=== PATIENT | female | born 1980 | race Caucasian/White ===

== ENCOUNTER → 2017-02-08 | Outpatient (CLI) | payer OTHER ==
[~2017-02-08] MED LIST: /MOM400 PO; ACET50TA PO; ANUS2.5C2 EXT; CATA0.1T OR; CLEO300C OR; DOCU10CA PO; DOCU10ELUD PO; FLEXERIL 5 MG; IBUP600T26 PO; IBUP60TA PO; IBUP80TA PO; MOM30SS PO; No Historical Meds; TRAM50TA2 OR; TRAZ100T OR; ZOLO50TA OR; [UNRECOGNIZED DRUG - CODE] EX
== END ==
LOC: M OUTALCOH 15:55
PROVIDERS: ATTEND Psychiatry & Neurology Psychiatry
DX: Z13.9 Encounter for screening, unspecified (principal); F11.20 Opioid dependence, uncomplicated

== ENCOUNTER 2017-09-14 09:01 | Inpatient (IN) | payer OTHER ==
[~2017-09-14] VITALS: Ht 170.2 cm; Wt 73.0 kg
[2017-09-14] MEDS ORDERED: CONC18TA14 (09:14)
[2017-09-14 10:02] LABS: MEAN CORPUSCULAR HEMOGLOBIN 32.3 pg (27.0-33.0); MEAN CORPUSCULAR HGB CONC 34.7 g/dl (32.0-36.5); MEAN CORPUSCULAR VOLUME 92.9 fl (80.0-96.0); RED CELL DISTRIBUTION WIDTH 12.6 % (11.5-14.5); WHITE BLOOD COUNT 9.2 10^3/uL (4.0-10.0)
[2017-09-14 10:25] LABS: CONTROL LINE HCG INT CTR LINE PRESENT
[2017-09-14 10:47] LABS: ALBUMIN/GLOBULIN RATIO 0.91 (1.00-1.93); ALKALINE PHOSPHATASE 62 U/L (45-117); ALT/SGPT 55 U/L (12-78); ANION GAP 4 MEQ/L (8-16); AST/SGOT 20 U/L (15-37); BILIRUBIN,DIRECT 0.3 MG/DL (0.0-0.2); BILIRUBIN,TOTAL 1.2 MG/DL (0.2-1.0); BLOOD UREA NITROGEN 11 MG/DL (7-18); CARBON DIOXIDE LEVEL 31 MEQ/L (21-32); CHLORIDE LEVEL 102 MEQ/L (98-107); CREATININE FOR GFR 0.77 MG/DL (0.55-1.02); GLOMERULAR FILTRATION RATE > 60.0 (>60); GLUCOSE, FASTING 73 MG/DL (70-105); POTASSIUM SERUM 4.1 MEQ/L (3.5-5.1); SODIUM LEVEL 137 MEQ/L (136-145); TOTAL PROTEIN 8.4 GM/DL (6.4-8.2)
[2017-09-14 11:19] LABS: METHADONE URINE NEGATIVE (NEGATIVE)
[2017-09-14] MEDS ORDERED: METH18TA2 PO (12:01)
[2017-09-14] MEDS ORDERED: METH36TA PO (12:01)
[2017-09-14] MEDS ORDERED: SUBO8MIS SL ×2 (12:01→12:50)
[2017-09-14 15:25] VITALS: BP 131/79
[2017-09-14] MEDS ORDERED: BUPRENORPHINE/NALOXONE 8-2MG SUBLINGUAL TABLET(SUBOXONE) SL STA (16:40)
[2017-09-14] MEDS ORDERED: traZODone 50 MG TAB PO PRN (18:00)
[2017-09-14] MEDS ORDERED: MAALOX 30 ML SUSP *UDC PO PRN (18:00)
[2017-09-14] MEDS ORDERED: MOM 30ML SUSPENSION UDC PO PRN (18:00)
[2017-09-15 06:26] VITALS: BP 141/67
[2017-09-15] MEDS: NICOTINE 21MG/24HR 1 EA TRANSDERMAL TD SCH (08:41)
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
[2017-09-15] MEDS: BUPRENORPHINE/NALOXONE 8-2MG SUBLINGUAL TABLET(SUBOXONE) SL SCH ×2 (09:38→21:04)
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
[2017-09-15] MEDS ORDERED: hydrOXYzine 25 MG TAB PO PRN (16:00)
[2017-09-15] MEDS: ACAMPROSATE CALCIUM 333 MG TABLET (CAMPRAL) PO SCH ×2 (16:09→21:04)
--- NOTE | 2017-09-15 16:39 | ECGEPIP ---
Stationary ECG Study [facility] Test Date: 2017-09-15 Pat Name: TYREE ACUNAepartment: Room: [place] [address] Gender: F Full Charge Bookkeeper: MYNOR : 1980 Requested By: Noa Reyez Order Number: [id number] Reading MD: Donovan Davidson Measurements Intervals [place] Rate: 78 P: 68 NC: 206 QRS: 51 QRSD: 117 T: 59 QT: 394 QTc: 451 Interpretive Statements SINUS RHYTHM WITH SINUS ARRHYTHMIA POSSIBLE OLD INFERIOR MYOCARDIAL INFARCT Increased heart rate compared with 2015. Electronically Signed On 09-15-2017 16:39:05 EDT by Donovan Davidson
[2017-09-15 18:22] VITALS: BP 128/63
[2017-09-15] MEDS: cloNIDine 0.1 MG TAB PO SCH (21:04)
[2017-09-16 06:00] VITALS: BP 117/68
[2017-09-16] MEDS: ACETAMINOPHEN TAB 650MG DOSE (2X325MG) PO PRN (06:25)
[2017-09-16] MEDS: cloNIDine 0.1 MG TAB PO SCH ×2 (08:34→22:57)
[2017-09-16] MEDS: NICOTINE 21MG/24HR 1 EA TRANSDERMAL TD SCH (08:34)
[2017-09-16] MEDS: ACAMPROSATE CALCIUM 333 MG TABLET (CAMPRAL) PO SCH ×3 (08:34→21:19)
[2017-09-16] MEDS: BUPRENORPHINE/NALOXONE 8-2MG SUBLINGUAL TABLET(SUBOXONE) SL SCH ×2 (08:34→21:19)
--- NOTE | 2017-09-16 14:20 | MHIPNPDOC ---
[facility] Progress Note Progress Note DATE OF SERVICE: 09/16/17 HISTORY: day 3 of admission for depression and anxiety related to CPS and children & substance abuse VITAL SIGNS: See below. NEW TEST RESULTS: CURRENT MEDICATIONS: See below. MENTAL STATUS EXAMINATION: General appearance: Patient is a 36-year old female, who is average height, dark hair in front and bright red hair behind, various tattoos on both arms and neck, good eye contact. Speech: spontaneous Thought processes: goal directed Thought content: appropriate Abstract reasoning and computation: good Description of associations: good Description of abnormal or psychotic thoughts: pt feels her MH needs must be addressed as her focus heretofore has been on substance abuse. She can CFS and believes she would never harm herself because of the poor example it would be to her children. She does not demonstrate any psychotic symptoms. Judgment: fair Insight: fair Orientation: well oriented x 4. Recent and remote memory: mostly good. Attention span and concentration: easily distracted, currently not prescribed Concerta. Fund of knowledge: Full Mood: "anxious" Affect: congruent. DIAGNOSES: 1. Depressive disorder, unspecified 2. Generalized Anxiety disorder 3. r/o bipolar disorder 4. ADD 5. Substance use disorder ASSESSMENT: pt is oor and visible in milieu, interacting with peers. knows one peer from treatment in the community. Appears motivated to treatment and has convinced staff that she is sincere. She worries about her 5 children with her cousin and this adds to her guilt. She knows it is a difficult on her cousin. She is talking with local agencies hoping to secure a better living situation. Pt is positive and optimistic. She has not used the hydroxyzine today. MANAGEMENT PLAN: close obs, prn hydroxyzine, clonidine bid for anxiety, monitor sleep, pt in need of housing, has HUD, seeking Case mgt services and working to get us information on her recent referral. Mirtazapine ordered for sleep. TIME SPENT: 15 minutes. Vital Signs Vital Signs Date Time Temp Pulse Resp B/P (MAP) Pulse Ox O2 Delivery O2 Flow Rate FiO2 09/16/17 08:34 117/68 09/16/17 06:00 97.1 63 16 09/15/17 06:26 Room Air 09/14/17 15:25 98 Current Medications Current Medications Acamprosate (Campral) 666 mg TID PO Last administered on 09/16/17 08:34; Start 09/15/17 at 16:00; Stop 10/15/17 at 15:59 Acetaminophen (Tylenol Tab) 650 mg Q6HP PRN PO HEADACHE or DISCOMFORT Last administered on 09/16/17 06:25; Start 09/14/17 at 18:00; Stop 10/14/17 at 17 :59 Al Hydrox/Mg Hydrox/Simethicone (Mylanta) 30 ml Q4HP PRN PO HEARTBURN/ INDIGESTION; Start 09/14/17 at 18:00; Stop 10/14/17 at 17:59 Buprenorphine/ Naloxone (Suboxone 8/2mg) 1 tab BID SL Last administered on 08:34; Start 09/14/17 at 21:00; Stop 09/21/17 at 20:59; Status Future hold Buprenorphine/ Naloxone (Suboxone 8/2mg) 1 tab DAILY STAT SL Last administered on 09/14/17 16:55; Start 09/14/17 at 16:40; Stop 09/14/17 at 16 :43; Status DC Clonidine HCl (Catapres) 0.1 mg BID PO Last administered on 09/16/17 08:34; Start 09/15/17 at 21:00; Stop 10/15/17 at 20:59 Home Med (Med Rec Complete!) ASDIRECTED XX ; Start 09/14/17 at 13:00; Stop at 13:00; Status DC Hydroxyzine HCl (Atarax) 25 mg Q6HP PRN PO ANXIETY; Start 09/15/17 at 16:00; Stop 10/15/17 at 15:59 Magnesium Hydroxide (Milk Of Magnesia) 30 ml DAILYPRN PRN PO CONSTIPATION; Start 09/14/17 at 18:00; Stop 10/14/17 at 17:59 Nicotine (Nicoderm Cq 21mg) 1 patch DAILY TD Last administered on 09/16/17 08 :34; Start 09/15/17 at 09:00; Stop 10/15/17 at 08:59 Trazodone HCl (Desyrel) 50 mg QHSP PRN PO INSOMNIA; Start 09/14/17 at 18:00; Stop 10/14/17 at 17:59 Allergies Coded Allergies: No Known Allergies (Verified Allergy, Unknown, 11/30/12) pt denies any allergies Tierney Nunez Sep 16, 2017 14:20
[2017-09-16 18:00] VITALS: BP 137/75
[2017-09-16] MEDS: MIRTAZAPINE 15 MG TAB PO SCH (22:55)
[2017-09-17 07:00] VITALS: BP 105/52
[2017-09-17] MEDS: cloNIDine 0.1 MG TAB PO SCH ×2 (09:00→23:17)
[2017-09-17] MEDS: NICOTINE 21MG/24HR 1 EA TRANSDERMAL TD SCH (09:31)
[2017-09-17] MEDS: ACAMPROSATE CALCIUM 333 MG TABLET (CAMPRAL) PO SCH ×3 (09:31→21:36)
[2017-09-17] MEDS: BUPRENORPHINE/NALOXONE 8-2MG SUBLINGUAL TABLET(SUBOXONE) SL SCH ×2 (09:31→21:23)
--- NOTE | 2017-09-17 09:40 | MHIPNPDOC ---
[facility] Progress Note Progress Note DATE OF SERVICE: 09/17/17 HISTORY: day 4 of admission for depression / relapse with alcohol, cocaine VITAL SIGNS: See below. NEW TEST RESULTS: na CURRENT MEDICATIONS: See below. MENTAL STATUS EXAMINATION: General appearance: Patient is a 36-year old female, who is average height, dark hair in front and bright red hair behind, various tattoos on both arms and neck, good eye contact. Speech: spontaneous Thought processes: goal directed Thought content: appropriate Abstract reasoning and computation: good Description of associations: good Description of abnormal or psychotic thoughts: pt feels her MH needs must be addressed as her focus heretofore has been on substance abuse. She can CFS and believes she would never harm herself because of the poor example it would be to her children. She does not demonstrate any psychotic symptoms. Judgment: fair Insight: fair Orientation: well oriented x 4. Recent and remote memory: mostly good. Attention span and concentration: easily distracted, currently not prescribed Concerta. Fund of knowledge: Full Mood: "anxious" Affect: congruent. DIAGNOSES: 1. Depressive disorder, unspecified 2. Generalized Anxiety disorder 3. r/o bipolar disorder 4. ADD 5. Substance use disorder ASSESSMENT:met with pt for 1:1 she is reporting daytime fatigue likely due to clonidine. will decrease to hs dosing only. pt still having nicotine cravings and asked to have gum instead of patch. Pt reports good sleep with Mirtazapine last night. We discussed her experience over the previous 5 years will her mood. She was sober and free of drugs during that time. She states that depression would overtake her suddenly even in the mist of doing something fun, like preparing to go to the beach, and she would not be able to complete packing up and would not go. Her mood would persist for 2-3 days and then gradually she would work up into and elevated mood with increased energy. She reports racing thoughts and going for days with little to no sleep and no need for sleep. She reports impulsive decision making and some reckless behavior. Her family history does not include bipolar that she is aware of. Pt is attending programming but also using her time to investigate safe housing for herself and children post discharge. Pt states she misses her children. Informed her 18 yo may visit. MANAGEMENT PLAN: will dc patch and order Nicorette gum, will begin Lamictal for mood stabilization- risks including SJS and angioedema discussed. Benefits explained. pt asked questions which were answered. Clonidine will be changed to hs dosing only., continue close obs and assist with housing as able. TIME SPENT: 25 minutes. Vital Signs Vital Signs Date Time Temp Pulse Resp B/P (MAP) Pulse Ox O2 Delivery O2 Flow Rate FiO2 09/17/17 07:00 98.1 57 18 105/52 (69) 09/15/17 06:26 Room Air 09/14/17 15:25 98 Current Medications Current Medications Acamprosate (Campral) 666 mg TID PO Last administered on 09/17/17 09:31; Start 09/15/17 at 16:00; Stop 10/15/17 at 15:59 Acetaminophen (Tylenol Tab) 650 mg Q6HP PRN PO HEADACHE or DISCOMFORT Last administered on 09/16/17 06:25; Start 09/14/17 at 18:00; Stop 10/14/17 at 17 :59 Al Hydrox/Mg Hydrox/Simethicone (Mylanta) 30 ml Q4HP PRN PO HEARTBURN/ INDIGESTION; Start 09/14/17 at 18:00; Stop 10/14/17 at 17:59 Buprenorphine/ Naloxone (Suboxone 8/2mg) 1 tab BID SL Last administered on 09:31; Start 09/14/17 at 21:00; Stop 09/21/17 at 20:59; Status Future hold Buprenorphine/ Naloxone (Suboxone 8/2mg) 1 tab DAILY STAT SL Last administered on 09/14/17 16:55; Start 09/14/17 at 16:40; Stop 09/14/17 at 16 :43; Status DC Clonidine HCl (Catapres) 0.1 mg BID PO Last administered on 09/16/17 22:57; Start 09/15/17 at 21:00; Stop 10/15/17 at 20:59 Home Med (Med Rec Complete!) ASDIRECTED XX ; Start 09/14/17 at 13:00; Stop at 13:00; Status DC Hydroxyzine HCl (Atarax) 25 mg Q6HP PRN PO ANXIETY Last administered on 15:23; Start 09/15/17 at 16:00; Stop 10/15/17 at 15:59 Magnesium Hydroxide (Milk Of Magnesia) 30 ml DAILYPRN PRN PO CONSTIPATION; Start 09/14/17 at 18:00; Stop 10/14/17 at 17:59 Mirtazapine (Remeron) 15 mg QHS PO Last administered on 09/16/17 22:55; Start 09/16/17 at 21:00; Stop 10/16/17 at 20:59 Nicotine (Nicoderm Cq 21mg) 1 patch DAILY TD Last administered on 09/17/17 09 :31; Start 09/15/17 at 09:00; Stop 10/15/17 at 08:59 Trazodone HCl (Desyrel) 50 mg QHSP PRN PO INSOMNIA; Start 09/14/17 at 18:00; Stop 10/14/17 at 17:59 Allergies Coded Allergies: No Known Allergies (Verified Allergy, Unknown, 10/28/12) pt denies any allergies Tierney Nunez Sep 17, 2017 09:40
[2017-09-17] MEDS: ACETAMINOPHEN TAB 650MG DOSE (2X325MG) PO PRN (12:17)
[2017-09-17] MEDS ORDERED: BENZOCAINE 10% 9GM TUBE (ANBESOL) TOP PRN (13:15)
[2017-09-17] MEDS: NICOTINE POLACRILEX 2 MG GUM PO PRN ×2 (14:29→21:24)
[2017-09-17 18:00] VITALS: BP 123/71
[2017-09-17] MEDS: lamoTRIgine 25 MG TAB PO SCH (21:36)
[2017-09-17] MEDS: MIRTAZAPINE 15 MG TAB PO SCH (23:18)
[2017-09-18 07:04] VITALS: BP 111/56
[2017-09-18] MEDS: BUPRENORPHINE/NALOXONE 8-2MG SUBLINGUAL TABLET(SUBOXONE) SL SCH ×2 (08:42→21:51)
[2017-09-18] MEDS: ACAMPROSATE CALCIUM 333 MG TABLET (CAMPRAL) PO SCH ×3 (08:42→20:13)
[2017-09-18] MEDS: ACETAMINOPHEN TAB 650MG DOSE (2X325MG) PO PRN (08:43)
[2017-09-18] MEDS: NICOTINE POLACRILEX 2 MG GUM PO PRN ×3 (09:49→20:13)
--- NOTE | 2017-09-18 15:59 | MHIPN ---
DATE: 09/18/2017 CHIEF COMPLAINT: Feels tired. SUBJECTIVE: Seen for followup in the presence of staff. Says feels a bit tired. Feels it is only because of the mirtazapine that was started while she was here. She says feels drowsy when she wakes up. Does say feels less anxious and less depressed overall. Appetite is fair. MENTAL STATUS EXAMINATION: Neat, cooperative. No agitation. No psychomotor retardation but appears somewhat tired. She is coherent. Affect restricted in range but showed reactivity. Denies any suicidal thoughts or intents. No homicidal ideas or intents. Currently no evidence of any psychosis. Cognition grossly intact. Judgment and insight fair. ASSESSMENT: 1. Unspecified depressive disorder. 2. Generalized anxiety disorder. 3. Rule out bipolar disorder. There is a consideration of substance use disorder as well. PLAN: Continue current care but will look at decreasing the dose of the mirtazapine; for example, halving it, and if the sense of tiredness continues, may need to look at discontinuing the Remeron. She is to be encouraged to participate in activities in the unit. VITAL SIGNS: Blood pressure 111/56, pulse 65, temperature 97.8.
[2017-09-18 18:13] VITALS: BP 113/68
[2017-09-18] MEDS: lamoTRIgine 25 MG TAB PO SCH (20:13)
[2017-09-18] MEDS: cloNIDine 0.1 MG TAB PO SCH (21:51)
[2017-09-18] MEDS: MIRTAZAPINE 7.5MG PER 1/2 TABLET PO SCH (21:51)
[2017-09-19 06:34] VITALS: BP 119/69
[2017-09-19] MEDS: BUPRENORPHINE/NALOXONE 8-2MG SUBLINGUAL TABLET(SUBOXONE) SL SCH ×2 (08:56→21:22)
[2017-09-19] MEDS: ACAMPROSATE CALCIUM 333 MG TABLET (CAMPRAL) PO SCH ×3 (08:56→21:21)
[2017-09-19] MEDS: NICOTINE POLACRILEX 2 MG GUM PO PRN ×2 (10:16→21:24)
[2017-09-19 18:00] VITALS: BP 133/68
[2017-09-19] MEDS: ACETAMINOPHEN TAB 650MG DOSE (2X325MG) PO PRN (18:57)
[2017-09-19] MEDS: MIRTAZAPINE 7.5MG PER 1/2 TABLET PO SCH (21:21)
[2017-09-19] MEDS: cloNIDine 0.1 MG TAB PO SCH (21:22)
[2017-09-19] MEDS: lamoTRIgine 25 MG TAB PO SCH (21:22)
[2017-09-20 06:36] VITALS: BP 85/53
[2017-09-20] MEDS: ACETAMINOPHEN TAB 650MG DOSE (2X325MG) PO PRN (08:31)
[2017-09-20] MEDS: ACAMPROSATE CALCIUM 333 MG TABLET (CAMPRAL) PO SCH ×3 (08:31→21:36)
[2017-09-20] MEDS: BUPRENORPHINE/NALOXONE 8-2MG SUBLINGUAL TABLET(SUBOXONE) SL SCH ×2 (08:31→21:33)
--- NOTE | 2017-09-20 08:53 | MHIPNPDOC ---
[facility] Progress Note Progress Note DATE OF SERVICE: 09/20/17 HISTORY: day 7 of admission for drug relapse and depression VITAL SIGNS: See below. NEW TEST RESULTS: na CURRENT MEDICATIONS: See below. MENTAL STATUS EXAMINATION: Patient is a 36-year old female, who appears older than her age, has bright red hair with black mixed in, wearing in pony tail with braid today, dressed in street clothes, cooperative. Speech: Is spontaneous, clear Language skills are intact and good. Thought processes including: goal directed. Thought content: appropriate. Abstract reasoning, and computation:good. Description of associations: good. Description of abnormal or psychotic thoughts: no psychotic symptoms illicited. pt is clear thinking and future oriented, no delusions or FOI.. Judgment: fair Insight: good. Orientation: oriented x 4. Recent and remote memory: intact Attention span and concentration: fair Fund of knowledge: Full. Mood: labile. Affect: tearful, anxious. DIAGNOSES: 1. Depressive disorder, unspecified 2. Generalized Anxiety disorder 3. r/o bipolar disorder 4. ADD 5. Substance use disorder ASSESSMENT:met with pt for 1:1. She was tearful and appears stressed. She is anticipating the meeting at 10:30 with CPS. She wants so much to be re-united with her Children. She is really struggling that her cousin is caring for all 5 of them. She is committed to substance abuse recovery and we are checking with [facility] on IOP for her. Once outpatient treatment plan and housing are determined we can move her into discharge mode. She has been working on discharge planning since she was initially admitted. Pt reports her daytime fatigue is resolved with lowering of the mirtazapine from 15 mg to 7.[address] Lopez this weekend. Pt received the okay late this afternoon from [facility] that she may live at her cousins with her children. Next we have to line up her IOP treatment and she will be ready for discharge. Continues to deny thoughts of harm to self or others. Denies desire to use illicit substances, admits to being co-dependent and needing to work on personal boundaries. MANAGEMENT PLAN: had planned to talk to pt about staff reports that she allows herself to become over involved with peers but due to her stress abut CPS this morning decided against it. Will wait for a more appropriate time, continue close obs and meds. TIME SPENT: 25 minutes. Vital Signs Vital Signs Date Time Temp Pulse Resp B/P (MAP) Pulse Ox O2 Delivery O2 Flow Rate FiO2 09/20/17 06:36 98.7 56 16 85/53 (64) 09/19/17 06:34 Room Air 09/14/17 15:25 98 Current Medications Current Medications Acamprosate (Campral) 666 mg TID PO Last administered on 09/20/17 08:31; Start 09/15/17 at 16:00; Stop 10/15/17 at 15:59 Acetaminophen (Tylenol Tab) 650 mg Q6HP PRN PO HEADACHE or DISCOMFORT Last administered on 09/20/17 08:31; Start 09/14/17 at 18:00; Stop 10/14/17 at 17 :59 Al Hydrox/Mg Hydrox/Simethicone (Mylanta) 30 ml Q4HP PRN PO HEARTBURN/ INDIGESTION; Start 09/14/17 at 18:00; Stop 10/14/17 at 17:59 Benzocaine (Anbesol Gel) Q2HP PRN TOP PAIN Last administered on 09/17/17 18: 00; Start 09/17/17 at 13:15; Stop 10/17/17 at 13:14 Buprenorphine/ Naloxone (Suboxone 8/2mg) 1 tab BID SL Last administered on 08:31; Start 09/14/17 at 21:00; Stop 09/21/17 at 20:59; Status Future hold Buprenorphine/ Naloxone (Suboxone 8/2mg) 1 tab DAILY STAT SL Last administered on 09/14/17 16:55; Start 09/14/17 at 16:40; Stop 09/14/17 at 16 :43; Status DC Clonidine HCl (Catapres) 0.1 mg BID PO Last administered on 09/16/17 22:57; Start 09/15/17 at 21:00; Stop 09/17/17 at 10:31; Status DC Clonidine HCl (Catapres) 0.1 mg QHS PO Last administered on 09/19/17 21:22; Start 09/17/17 at 21:00; Stop 10/15/17 at 20:59 Home Med (Med Rec Complete!) ASDIRECTED XX ; Start 09/14/17 at 13:00; Stop at 13:00; Status DC Hydroxyzine HCl (Atarax) 25 mg Q6HP PRN PO ANXIETY Last administered on 15:23; Start 09/15/17 at 16:00; Stop 10/15/17 at 15:59 Lamotrigine (LaMICtal) 25 mg QHS PO Last administered on 09/19/17 21:22; Start 09/17/17 at 21:00; Stop 10/17/17 at 20:59 Magnesium Hydroxide (Milk Of Magnesia) 30 ml DAILYPRN PRN PO CONSTIPATION; Start 09/14/17 at 18:00; Stop 10/14/17 at 17:59 Mirtazapine (Remeron) 7.5 mg QHS PO Last administered on 09/19/17 21:21; Start 09/18/17 at 21:00; Stop 10/18/17 at 20:59 Mirtazapine (Remeron) 15 mg QHS PO Last administered on 09/17/17 23:18; Start 09/16/17 at 21:00; Stop 09/18/17 at 14:00; Status DC Nicotine (Nicoderm Cq 21mg) 1 patch DAILY TD Last administered on 09/17/17 09 :31; Start 09/15/17 at 09:00; Stop 09/17/17 at 10:31; Status DC Nicotine (Nicorette) 2 mg Q4HP PRN PO NICOTINE WITHDRAWAL Last administered on 09/19/17 21:24; Start 09/17/17 at 10:30; Stop 10/17/17 at 10:29 Trazodone HCl (Desyrel) 50 mg QHSP PRN PO INSOMNIA; Start 09/14/17 at 18:00; Stop 10/14/17 at 17:59; Status Cancel Allergies Coded Allergies: No Known Allergies (Verified Allergy, Unknown, 10/28/12) pt denies any allergies Tierney Nuenz Sep 20, 2017 08:53
[2017-09-20] MEDS: NICOTINE POLACRILEX 2 MG GUM PO PRN ×2 (15:06→21:38)
[2017-09-20 18:00] VITALS: BP 132/52
[2017-09-20 21:36] VITALS: BP 135/78
[2017-09-20] MEDS: lamoTRIgine 25 MG TAB PO SCH (21:36)
[2017-09-20] MEDS: cloNIDine 0.1 MG TAB PO SCH (21:36)
[2017-09-20] MEDS: MIRTAZAPINE 7.5MG PER 1/2 TABLET PO SCH (21:36)
[2017-09-21 06:50] VITALS: BP 119/62
[2017-09-21] MEDS: ACAMPROSATE CALCIUM 333 MG TABLET (CAMPRAL) PO SCH (08:26)
[2017-09-21] MEDS: BUPRENORPHINE/NALOXONE 8-2MG SUBLINGUAL TABLET(SUBOXONE) SL SCH (08:26)
[2017-09-21] MEDS: ACETAMINOPHEN TAB 650MG DOSE (2X325MG) PO PRN (08:28)
[2017-09-21] MEDS ORDERED: LAMI25TA PO (08:55)
[2017-09-21] MEDS ORDERED: CLONI1TA PO (08:55)
[2017-09-21] MEDS ORDERED: HYDR-3363 PO (08:55)
[2017-09-21] MEDS ORDERED: ACAM0.05 PO (08:55)
[2017-09-21] MEDS ORDERED: BUPR1SUB5 SL (08:55)
[2017-09-21] MEDS ORDERED: MIRT15TA3 PO (08:55)
[2017-09-21] MEDS ORDERED: ANBEEL TOP (08:55)
[2017-09-21] MEDS ORDERED: NICO2GUM62 PO (08:55)
--- NOTE | 2017-09-21 08:56 | MHDSPDOC ---
[facility] Discharge Summary Discharge Summary DATE OF ADMISSION: Sep 14, 2017 at 14:39 DATE OF DISCHARGE: Sep 21, 2017 DISCHARGE DIAGNOSES: 1. Depressive disorder, unspecified 2. Generalized Anxiety disorder 3. r/o bipolar disorder 4. ADD 5. Substance use disorder REASON FOR ADMISSION: Patient is a 36-year-old female, who has a very long h/o polysubstance abuse. Most recently completed and intake at [facility] but never returned for treatment. Does receive Suboxone maintenance from Dr. Reyna. Has been taking the medication for several years and still at 16 mg daily. Pt has 6 children all of whom CPS has removed from her care due to her persistent substance abuse. the children are currently living with pts cousin Kathy. Children range in age from 2 to 18 yo, 4 boys and 2 girls. Pt was observed consuming alcohol during most recent child wellness check up. Pt expressed vague Suicidal ideation and no plan. Pt was previously admitted for inpatient psychiatric services in 2007 and does admit to one previous suicide attempt by overdose but did not seek medical help during that incident. Prior to this recent episode involving alcohol and cocaine she had been clean and sober since 2011. CONSULTANTS INVOLVED: Pharmacy, medicine, Lab, Nursing, Psychiatry, EKG TREATMENT AND PROGRESS ON THE UNIT : pt was evaluated and needs identified. She felt like staff took time to listen to her and meet her needs. Anxiety is a big problem for her. SA has complicated this but her worry for her children and their safety is another huge concern. She arrived unsure of safe housing but by the time of discharge she was comfortable with the plan she had made. She attended programming regularly. She got along well with peers socially. Staff noticed she was over involved with peers and described as "being a mother hen" to the other pts. She accepted counseling on codependency and setting personal boundaries and was able to identify with these things. She set them as goals she needs to work on. Sleep was resolved with mirtazapine and no daytime fatigue if she receives 7.5 mg daily. Anxiety of the unknown was a stressor for her. HOSPITAL COURSE: pt ate well, attended to hygiene needs and remained in contact with the cousin who has her children. She met with CPs who were convinced she could safely return to live with the children. She has decided to reside with her cousin for now and will benefit from this support versus being alone with 5 children in a assisted. She states her children are on a routine and doing well with the cousin and she does not want to interrupt this. Since cousin has room for all of them, the family will remain together. Pt will continue her outpatient care with Dr. Reyna for Suboxone. She will visit the [facility] program as a walk-in and return for substance abuse treatment there. She will continue with [facility] for her drinking cravings. She is to dose hydroxyzine q 6 hours as needed for anxiety. pt received education on medication benefits and risks including serotonin syndrome, interactions of opioids or high doses of benzo's with Suboxone. Dry mouth and fatigue associated with Atarax. DISCHARGE ASSESSMENT:pt was in good spirits and understood the importance of keeping her outpatient appointments and avoiding all substances at the time of discharge. She was not suicidal or homicidal. Her mood had improved and she was free of high level anxiety. She demonstrated care in her decision making and the ability to put her children above herself. She was sleeping much better and she also could identify good coping mechanisms to help her in the real world. She is to follow up with the pipe setter for her Hepatitis C needs. MENTAL STATUS EXAMINATION ON DISCHARGE: Patient is a 36-year old female, who appears older than her age, has bright red hair with black mixed in, wearing in pony tail with braid today, dressed in street clothes, cooperative. Speech: Is spontaneous, clear Language skills are intact and good. Thought processes including: goal directed. Thought content: appropriate. Abstract reasoning, and computation:good. Description of associations: good. Description of abnormal or psychotic thoughts: no psychotic symptoms illicited. pt is clear thinking and future oriented, no delusions or FOI.. Judgment: good Insight: good. Orientation: oriented x 4. Recent and remote memory: intact Attention span and concentration: fair Fund of knowledge: Full. Mood: upbeat and positive Affect: happy MEDICATIONS ON DISCHARGE: - Suboxone 30 day supply no refills for substance abuse - mirtazapine for insomnia. - Lamictal for depression/anxiety/mood stabilization. pt was not given a script for Concerta but may resume it if necessary. Anxiety may be worse and insomnia may return if she does. PLAN/FOLLOWUP ARRANGEMENTS: Dr. Reyna for Suboxone treatment. [facility] for med mgt and ind therapy. [facility] for group therapy - substance abuse The amount of time spent in the coordination of care for this patient was approximately 32 minutes. Vital Signs/I&Os Vital Signs Date Time Temp Pulse Resp B/P (MAP) Pulse Ox O2 Delivery O2 Flow Rate FiO2 09/21/17 06:50 97.1 63 16 119/62 (81) 09/19/17 06:34 Room Air Medications Scheduled Acamprosate Calcium (Acamprosate Calcium Dr) 333 Mg Tab, 666 MG PO TID for alcohol abstinence for 7 Days, #42 Buprenorphine/Naloxone (Suboxone 8-2 mg) 1 Mis Mis, 1 MIS SL QAM, (Reported) Buprenorphine/Naloxone (Suboxone 8-2 mg) 1 Mis Mis, 1 MIS SL DAILY, (Reported) TAKES MID-AFTERNOON Buprenorphine/Naloxone (Buprenorphine HCl/Naloxon 8-2 mg) 1 Sub Sub, 1 TAB SL BID for opioid abstinence for 30 Days, #60 1 tab sl in a.m. and 1 tab sl mid day Clonidine Hcl (Catapres) 0.1 Mg Tab, 0.1 MG PO QHS for ANXIETY for 7 Days, #7 Lamotrigine (Lamictal) 25 Mg Tab, 25 MG PO QHS for MOOD for 7 Days, #14 begin dosing 2 tabs at bed time. outpatient provider will increase dose to reach 100 mg then 200 mg Methylphenidate HCl (Methylphenidate HCl ER) 36 Mg Tab, 36 MG PO QAM, (Reported) Methylphenidate HCl (Methylphenidate HCl ER) 18 Mg Tab, 18 MG PO DAILY, ( Reported) TAKES MID-AFTERNOON Mirtazapine (Mirtazapine) 15 Mg Tab, 7.5 MG PO QHS for INSOMNIA for 7 Days, #4 take 1/2 tab by mouth at bedtime Scheduled PRN Acetaminophen (Tylenol) 500 Mg Tab, 1,000 MG PO Q6H PRN for PAIN, (Reported) Benzocaine (Anbesol) 1 Dose/9 Gm Gel, 0 DOSE TOP Q2HP PRN for PAIN for 30 Days, #1 Hydroxyzine HCl (Hydroxyzine HCl) 25 Mg Tab, 25 MG PO Q6HP PRN for ANXIETY for 7 Days, #28 take as needed for ANXIETY up to 4 times a day. Nicotine Polacrilex (Nicorelief) 2 Mg Gum, 2 MG PO Q4HP PRN for NICOTINE WITHDRAWAL for 7 Days, #24 Allergies Coded Allergies: No Known Allergies (Verified Allergy, Unknown, 10/28/12) pt denies any allergies Tierney Nunez Sep 21, 2017 08:56
[2017-09-28] MEDS ORDERED: ACAM0.05 PO (16:43)
== END 2017-09-21 12:20 | disposition home or self-care (01) | DRG 754 ==
LOC: M ED 09:01 → M ED INP 14:39 → M PSY 15:25
PROVIDERS: ADMIT Psychiatry & Neurology Psychiatry; ATTEND Psychiatry & Neurology Psychiatry
DX: F32.9 Major depressive disorder, single episode, unspecified (principal); F41.1 Generalized anxiety disorder; F31.9 Bipolar disorder, unspecified; F19.94 Other psychoactive substance use, unspecified with psychoactive substance-induced mood disorder; F90.9 Attention-deficit hyperactivity disorder, unspecified type; Z79.899 Other long term (current) drug therapy; B18.2 Chronic viral hepatitis C; F17.200 Nicotine dependence, unspecified, uncomplicated

== ENCOUNTER → 2017-11-24 | Outpatient (CLI) | payer MEDICAID ==
[~2017-11-24] MED LIST changes: +ACAM0.05 PO; +ANBEEL TOP; +BUPR1SUB5 SL; +CLONI1TA PO; +CONC18TA14; +HYDR-3363 PO; +LAMI25TA PO; +METH18TA2 PO; +METH36TA PO; +MIRT15TA3 PO; +NICO2GUM62 PO; +SUBO8MIS SL
== END ==
LOC: M OUTALCOH 07:53
PROVIDERS: ATTEND Psychiatry & Neurology Psychiatry
DX: F11.20 Opioid dependence, uncomplicated (principal); F14.20 Cocaine dependence, uncomplicated

== ENCOUNTER 2017-12-24 11:22 | Outpatient (RCR) | payer MEDICAID | END 2017-12-29 | LOC: M OUTALCOH 12-27 10:30 | DX: F11.20 Opioid dependence, uncomplicated (principal); F14.20 Cocaine dependence, uncomplicated; F17.200 Nicotine dependence, unspecified, uncomplicated ==

== ENCOUNTER 2018-01-03 13:31 | Outpatient (RCR) | payer MEDICAID | END 2018-01-26 | LOC: M OUTALCOH 01-25 11:00 | DX: F11.20 Opioid dependence, uncomplicated (principal); F14.20 Cocaine dependence, uncomplicated; F17.200 Nicotine dependence, unspecified, uncomplicated ==

== ENCOUNTER → 2018-01-14 | Outpatient (CLI) | payer MEDICAID ==
[2018-01-14 19:49] LABS: BASO % 0.6 % (0.0-1.0); EOS # 0.1 10^3/uL (0.0-0.50); EOS % 1.8 % (0.0-3.0); HEMATOCRIT 41.6 % (36.0-47.0); HEMOGLOBIN 14.5 g/dl (12.0-16.0); IMMATURE GRANULOCYTE % 0.3 % (0-3.0); LYMPH # 2.6 10^3/uL (1.5-4.5); LYMPH % 39.6 % (24.0-44.0); MEAN CORPUSCULAR HEMOGLOBIN 30.8 pg (27.0-33.0); MEAN CORPUSCULAR HGB CONC 34.9 g/dl (32.0-36.5); MEAN CORPUSCULAR VOLUME 88.3 fl (80.0-96.0); MONO # 0.6 10^3/uL (0.0-0.8); MONO % 8.3 % (0.0-5.0); NEUTROPHILS # 3.3 10^3/uL (1.8-7.7); NEUTROPHILS % 49.4 % (36.0-66.0); PLATELET COUNT, AUTOMATED 190 10^3/uL (150-450); RED BLOOD COUNT 4.71 10^6/uL (4.00-5.40); RED CELL DISTRIBUTION WIDTH 12.1 % (11.5-14.5); WHITE BLOOD COUNT 6.6 10^3/uL (4.0-10.0)
[2018-01-14 20:23] LABS: ALBUMIN 3.9 GM/DL (3.2-5.2); ALBUMIN/GLOBULIN RATIO 0.98 (1.00-1.93); ALKALINE PHOSPHATASE 57 U/L (45-117); ALT/SGPT 82 U/L (12-78); ANION GAP 8 MEQ/L (8-16); AST/SGOT 55 U/L (7-37); BILIRUBIN,DIRECT 0.1 MG/DL (0.0-0.2); BILIRUBIN,TOTAL 0.3 MG/DL (0.2-1.0); BLOOD UREA NITROGEN 11 MG/DL (7-18); CALCIUM LEVEL 8.8 MG/DL (8.5-10.1); CARBON DIOXIDE LEVEL 31 MEQ/L (21-32); CHLORIDE LEVEL 102 MEQ/L (98-107); CREATININE FOR GFR 0.71 MG/DL (0.55-1.30); GLOMERULAR FILTRATION RATE > 60.0 (>60); GLUCOSE, FASTING 96 MG/DL (70-100); PHOSPHORUS LEVEL 3.7 MG/DL (2.5-4.9); POTASSIUM SERUM 3.9 MEQ/L (3.5-5.1); SODIUM LEVEL 141 MEQ/L (136-145); TOTAL PROTEIN 7.9 GM/DL (6.4-8.2)
[2018-01-19 08:07] LABS: HEPATITIS C QUANTITATION 46610 IU/mL (.)
== END ==
LOC: M WUC 18:32
DX: B19.20 Unspecified viral hepatitis C without hepatic coma (principal)
CPT/HCPCS: 80076

== ENCOUNTER 2018-02-07 15:12 | Outpatient (RCR) | payer MEDICAID | END 2018-02-26 | LOC: M OUTALCOH 15:12 | DX: F11.20 Opioid dependence, uncomplicated (principal); F14.20 Cocaine dependence, uncomplicated; F17.200 Nicotine dependence, unspecified, uncomplicated ==

== ENCOUNTER 2018-03-10 09:01 | Outpatient (RCR) | payer MEDICAID | END 2018-03-28 | LOC: M OUTALCOH 03-22 09:00 | DX: F11.20 Opioid dependence, uncomplicated (principal); F14.20 Cocaine dependence, uncomplicated; F17.200 Nicotine dependence, unspecified, uncomplicated ==

== ENCOUNTER 2018-03-30 10:21 | Outpatient (RCR) | payer MEDICAID | END 2018-04-28 | LOC: M OUTALCOH 10:21 | DX: F11.20 Opioid dependence, uncomplicated (principal); F14.20 Cocaine dependence, uncomplicated; F17.200 Nicotine dependence, unspecified, uncomplicated ==

== ENCOUNTER 2018-04-29 13:31 | Outpatient (RCR) | payer MEDICAID | END 2018-05-28 | LOC: M OUTALCOH 13:31 | DX: F11.20 Opioid dependence, uncomplicated (principal); F14.20 Cocaine dependence, uncomplicated; F17.200 Nicotine dependence, unspecified, uncomplicated ==

== ENCOUNTER 2018-05-30 10:39 | Outpatient (RCR) | payer MEDICAID | END 2018-06-28 | LOC: M OUTALCOH 10:39 | DX: F11.20 Opioid dependence, uncomplicated (principal); F14.20 Cocaine dependence, uncomplicated; F17.200 Nicotine dependence, unspecified, uncomplicated ==

== ENCOUNTER 2018-08-08 14:03 | Outpatient (RCR) | payer MEDICAID | END 2018-08-28 | LOC: M OUTALCOH 14:03 | DX: F11.20 Opioid dependence, uncomplicated (principal); F14.20 Cocaine dependence, uncomplicated; F17.200 Nicotine dependence, unspecified, uncomplicated ==

== ENCOUNTER 2018-09-02 13:07 | Outpatient (RCR) | payer MEDICAID | END 2018-09-28 | LOC: M OUTALCOH 13:07 | DX: F11.20 Opioid dependence, uncomplicated (principal); F14.20 Cocaine dependence, uncomplicated; F17.200 Nicotine dependence, unspecified, uncomplicated ==

== ENCOUNTER → 2018-09-04 | Outpatient (CLI) | payer MEDICAID | LOC: M WUC 16:00 | DX: M25.561 Pain in right knee (principal) | CPT/HCPCS: 73564 ==

== ENCOUNTER 2018-09-30 15:07 | Outpatient (RCR) | payer MEDICAID | END 2018-10-28 | LOC: M OUTALCOH 10-11 10:00 | DX: F11.20 Opioid dependence, uncomplicated (principal); F14.20 Cocaine dependence, uncomplicated; F17.200 Nicotine dependence, unspecified, uncomplicated ==

== ENCOUNTER 2018-11-15 10:00 | Outpatient (RCR) | payer MEDICAID ==
[~2018-11-15 10:00] MED LIST changes: +MAPA500T2 PO
== END 2018-11-28 ==
LOC: M OUTALCOH 10:00
PROVIDERS: ATTEND Psychiatry & Neurology Psychiatry
DX: F11.20 Opioid dependence, uncomplicated (principal); F14.20 Cocaine dependence, uncomplicated; F17.200 Nicotine dependence, unspecified, uncomplicated

== ENCOUNTER 2018-12-28 09:00 | Outpatient (RCR) | payer MEDICAID | END 2018-12-29 | LOC: M OUTALCOH 09:00 | PROVIDERS: ATTEND Psychiatry & Neurology Psychiatry | DX: F11.20 Opioid dependence, uncomplicated (principal); F14.20 Cocaine dependence, uncomplicated; F17.200 Nicotine dependence, unspecified, uncomplicated ==

== ENCOUNTER 2019-01-04 11:00 | Outpatient (RCR) | payer MEDICAID | END 2019-01-26 | LOC: M OUTALCOH 11:00 | PROVIDERS: ATTEND Psychiatry & Neurology Psychiatry | DX: F11.20 Opioid dependence, uncomplicated (principal); F14.20 Cocaine dependence, uncomplicated; F17.200 Nicotine dependence, unspecified, uncomplicated ==

== ENCOUNTER → 2020-07-18 | Outpatient (CLI) | payer MEDICAID ==
[~2020-07-18] MED LIST changes: -/MOM400 PO; +ACET1TAB55 PO; -ACET50TA PO; -DOCU10ELUD PO; +DOCU5LIQ PO; +IBUP600T42 PO; -IBUP60TA PO; +MAPA500T17 PO; -METH18TA2 PO; +METH18TA6 PO; -METH36TA PO; +METH36TA5 PO; +MILK10SU PO; +MIRE1IUD IU; +NICO-13 PO; -NICO2GUM62 PO
--- NOTE | 2020-07-25 17:00 | REP ---
LIMITED VIEWS LEFT KNEE: 3-VIEWS REASON FOR EXAMINATION: Pain. FINDINGS: The patient was unable to assume all positions for a complete knee series, declining lateral and sunrise views. Limited evaluation of the left knee shows no evidence of an acute fracture or destructive osseous lesion. MTDD
== END ==
LOC: M WUC 17:34
PROVIDERS: ATTEND Physician Assistant
DX: M25.562 Pain in left knee (principal)

== ENCOUNTER 2020-07-24 11:17 | Inpatient (IN) | payer MEDICAID, OTHER ==
[~2020-07-24] VITALS: Ht 170.2 cm; Wt 65.9 kg
[~2020-07-24 11:17] MED LIST changes: -ACET1TAB55 PO; -MIRE1IUD IU
[2020-07-24] MEDS ORDERED: ACET1TAB55 PO (11:30)
[2020-07-24] MEDS ORDERED: NS 1,000 ML IV ONE (11:45)
--- NOTE | 2020-07-24 12:13 | REPVR ---
PROCEDURE INFORMATION: Exam: US Duplex Left Lower Extremity Veins, Limited Exam date and time: 07/24/2020 12:04 PM Age: 39 years old Clinical indication: Pain; Leg, lower; Left; Additional info: Pain and swelling TECHNIQUE: Imaging protocol: Real-time Duplex ultrasound of the Left Lower Extremity with 2-D eubanks scale, color Doppler flow and spectral waveform analysis with image documentation. Limited exam focused on the left lower extremity veins. COMPARISON: No relevant prior studies available. FINDINGS: Left deep veins: Unremarkable. The common femoral, femoral, proximal profunda femoral and popliteal veins are patent without thrombus. Normal Doppler waveforms. Normal compressibility and/or augmentation response. Left superficial veins: Unremarkable. Saphenofemoral junction is patent without thrombus. Soft tissues: A complex subcutaneous collection over the knee anteriorly measuring 7.3 x 1.8 x 3.3 cm could represent bursitis or hematoma. IMPRESSION: 1. No deep venous thrombus demonstrated in the left lower extremity. 2. Complex subcutaneous collection anteriorly over the knee, could represent bursitis or hematoma. Consider further characterization with MRI, particularly if there is no concordant history, to evaluate for other pathology. Electronically signed by: Isac Chaves On 07/24/2020 12:14:07 PM
[2020-07-24 12:50] LABS: BASO % 0.4 % (0.0-1.0); EOS # 0.2 10^3/uL (0.0-0.5); EOS % 1.6 % (0.0-3.0); HEMATOCRIT 42.4 % (36.0-47.0); HEMOGLOBIN 14.3 g/dl (12.0-15.5); LYMPH % 20.1 % (24.0-44.0); MEAN CORPUSCULAR HGB CONC 33.7 g/dl (32.0-36.5); MEAN CORPUSCULAR VOLUME 89.1 fl (80.0-96.0); MONO # 0.9 10^3/uL (0.0-0.8); MONO % 9.7 % (0.0-5.0); NEUTROPHILS # 6.6 10^3/uL (1.5-8.5); NEUTROPHILS % 67.4 % (36.0-66.0); PLATELET COUNT, AUTOMATED 299 10^3/uL (150-450); RED BLOOD COUNT 4.76 10^6/uL (4.00-5.40); WHITE BLOOD COUNT 9.7 10^3/uL (4.0-10.0)
[2020-07-24 13:08] LABS: BLOOD UREA NITROGEN 7 MG/DL (7-18); C REACTIVE PROTEIN QUANTITATIV 2.53 MG/DL (0.00-0.30); CALCIUM LEVEL 8.7 MG/DL (8.5-10.1); CARBON DIOXIDE LEVEL 32 MEQ/L (21-32); CHLORIDE LEVEL 99 MEQ/L (98-107); CREATININE FOR GFR 0.63 MG/DL (0.55-1.30); GLOMERULAR FILTRATION RATE > 60.0 (>60); GLUCOSE, FASTING 98 MG/DL (70-100); SODIUM LEVEL 137 MEQ/L (136-145); URIC ACID 5.7 MG/DL (2.6-6.0)
[2020-07-24 13:39] LABS: ERYTHROCYTE SEDIMENTATION RATE 52 mm/hr (0-20)
[2020-07-24] MEDS ORDERED: LIDOCAINE 1% MDV 20ML VIAL As Ordered ONE (16:09)
[2020-07-24] MEDS ORDERED: LIDOCAINE 1% MDV 20ML VIAL IM ONE (16:15)
[2020-07-24] MEDS ORDERED: NS 1,000 ML IV SCH (16:32)
[2020-07-24] MEDS ORDERED: NORCO, ANEXSIA 5/325MG TABLET (HYDROcodone/ACETAMINOPHEN) PO PRN (16:45)
[2020-07-24] MEDS ORDERED: BISACODYL 10 MG SUPP PR PRN (16:45)
[2020-07-24] MEDS ORDERED: traMADol 50 MG TAB PO PRN (16:45)
[2020-07-24] MEDS ORDERED: ONDANSETRON 4MG/2ML VIAL IV PRN (16:45)
[2020-07-24] MEDS ORDERED: ACETAMINOPHEN TAB 650MG DOSE (2X325MG) PO PRN (16:45)
[2020-07-24] MEDS ORDERED: MOM 30ML SUSPENSION UDC PO PRN (16:45)
[2020-07-24 17:07] LABS: CRYSTALS, BODY FLUID NONE SEEN (NONE SEEN); SOURCE, BODY FLUID CRYSTALS LFT KNEE
[2020-07-24 17:26] LABS: SOURCE, BODY FLUID GLUCOSE LFT KNEE
[2020-07-24 17:44] LABS: SOURCE, BODY FLUID RT KNEE; SYNOVIAL FLUID COLOR AMBER (YELLOW)
[2020-07-24] MEDS ORDERED: ceFAZolin SOD 2 GM in D5W MINI-BAG PLUS 50 ML IV SCH (18:00)
[2020-07-24 19:08] VITALS: BP 161/83
--- NOTE | 2020-07-24 19:44 | CR.PDOC ---
General Date of Consultation: Jul 24, 2020 Attending Physician: LISANDRO LAMB MD Consultation REASON FOR CONSULTATION/CHIEF COMPLAINT: Medical management HISTORY OF PRESENT ILLNESS: Pt is a 39 YO female with past history of IV drug abuse presented to the emergency department with Severe, constant, 9/10, sharp, non radiating pain in her left knee. There were no aggravating or relieving factors. The patient was apparently alright 5 days ago when she started with a severe sharp pain first in her ankle which migrated over a period of 4 days to her left knee. She has never had such pain before. She has been to the urgent care 5 days ago for her ankle pain where she got a dose of Toradol steroid shot (?) and was sent home with no imaging done. She reports no other symptoms. She reports no history of trauma, insect bites, no recent tattoos, no recent pedicures, outdoor activity, travel, rash, swelling in any other joints, constipation, nausea, diarrhea, shortness of breath. PAST MEDICAL HISTORY: 1. IVDU 2. Hepatitis C Untreated. 3. Anxiety 4.Depression PAST SURGICAL HISTORY: 1. NONE HOME MEDICATIONS: Please see below. PHYSICAL EXAMINATION: VITAL SIGNS: See below GENERAL APPEARANCE: Patient looked sedated and drowsy. HEENT: CARDIOVASCULAR: RRR, S1, S2 normal, no murmurs LUNGS: Clear breath sounds, no wheezing / crackles ABDOMEN: NT, ND, with no organomegaly. MUSCULOSKELETAL: Patient deferred a proper examination of her left knee due to excruciating pain and was freshly wrapped after her synovial fluid aspiration . Area around the dressing was normal mildly red, tender EXTREMITIES: Good Regular pulses in all 4 extremities NEURO: Good motor strength in three of her extremities except her left leg which was not tested because of pain LABORATORY DATA: See below. IMAGING: MICROBIOLOGY: Please see below. ASSESSMENT/PLAN: Left leg Swelling and Pain Pt is a 39 YO female with past history of IV drug abuse presented to the emergency department with Severe, constant, 9/10, sharp, non radiating pain in her left knee,found to have a WBC of 21,720 in her synovial fluid analysis concerning for an Inflammatory joint disease vs Infectious joint Disease . 1. Inflammatory joint disease of the left knee: As per the synovial fluid report: Her WBC's = 21,720 ( within 20,000-50,000) PMN=88.6 ( high) Mononuclear cells=11.4 (high) Ordered a RF, TERA , Chlamydia , Gonorrhea testing ( To rule out any of the other reactive / inflammatory causes). Further management per [facility]. 2. Hx of IVDU -checking tox screen 3. Hx of Hepatitis C. - Untreated, checking hepatitis profile 4. Anxiety patient no longer taking home meds 5. Depression self dc'd home meds. No indication for DVT prophylaxis. Vital Signs/I&O Vital Signs Date Time Temp Pulse Resp B/P (MAP) Pulse Ox O2 Delivery O2 Flow Rate FiO2 07/24/20 19:08 98.9 96 18 161/83 (109) 98 Room Air Laboratory Data Labs 24H Laboratory Tests 2 07/24/20 00:00: Body Fluid WBC (Auto) 64578G, Body Fluid RBC (Auto) 13, Body Fluid Mononuclear Cells % Auto 11.4H, Fluid Polymorphonuclear Cell % Auto 88.6H, Body Fluid Crystals NONE SEEN, Body Fluid Crystal Source LFT KNEE, Body Fluid Glucose Source LFT KNEE, Body Fluid Glucose 13, Synovial Fluid Source RT KNEE, Synovial Fluid Color CHIDI, Synovial Fluid Appearance CLOUDY 07/24/20 12:20: Immature Granulocyte % (Auto) 0.8, Neutrophils (%) (Auto) 67.4H, Lymphocytes (%) (Auto) 20.1L, Monocytes (%) (Auto) 9.7H, Eosinophils (%) (Auto) 1.6, Basophils (%) (Auto) 0.4, Neutrophils # (Auto) 6.6, Lymphocytes # (Auto) 2.0, Monocytes # (Auto) 0.9H, Eosinophils # (Auto) 0.2, Basophils # (Auto) 0.0, Nucleated Red Blood Cells % (auto) 0.0, Erythrocyte Sedimentation Rate 52H, Anion Gap 6L, Glomerular Filtration Rate > 60.0, Lactic Acid Level 1.0, Uric Acid 5.7, Calcium Level 8.7, C-Reactive Protein, Quantitative 2.53H CBC/BMP Laboratory Tests 07/24/20 12:20 Microbiology Microbiology 07/24/20 Blood Culture, Received Pending 07/24/20 Blood Culture, Received Pending 07/24/20 Gram Stain - Preliminary, Resulted 07/24/20 Body Fluid Culture, Resulted Pending Allergies Coded Allergies: No Known Allergies (Verified , 10/28/12) pt denies any allergies Home Medications Scheduled PRN Acetaminophen (Acetaminophen) 325 Mg Tablet, 650 TAB PO Q6H PRN for PAIN, (Reported) GME ATTESTATION GME ATTESTATION My faculty preceptor for this patient encounter was physically present during the encounter and was fully available. All aspects of the patient interview, examination, medical decision making process, and medical care plan development were reviewed and approved by the faculty preceptor. The faculty preceptor is aware and concurs with the plan as stated in the body of this note and will attest to such by his/her cosignature. ATTENDING NOTE I, Lisandro Lamb, have independently examined this patient and performed my own physical exam, as well as reviewed the documentation and edited where necessary. I have discussed in detail with the resident / student the findings and plan of treatment as documented by the resident / student and edited their note. I agree with their findings and treatment plan and have edited their documentation. I will continue to follow the patient during this hospital stay. Alessandro Myers MD Jul 24, 2020 19:44 LISANDRO LAMB MD Jul 24, 2020 20:45
[2020-07-24 20:20] LABS: RHEUMATOID FACTOR QUANT 15.7 IU/ML (<15.0)
[2020-07-24 20:26] LABS: ALBUMIN 2.9 GM/DL (3.2-5.2); ALT/SGPT 18 U/L (12-78); BILIRUBIN,TOTAL 0.5 MG/DL (0.2-1.0); BLOOD UREA NITROGEN 5 MG/DL (7-18); CALCIUM LEVEL 8.7 MG/DL (8.5-10.1); CARBON DIOXIDE LEVEL 33 MEQ/L (21-32); CHLORIDE LEVEL 102 MEQ/L (98-107); CREATININE FOR GFR 0.62 MG/DL (0.55-1.30); GLOMERULAR FILTRATION RATE > 60.0 (>60); GLUCOSE, FASTING 110 MG/DL (70-100); POTASSIUM SERUM 3.1 MEQ/L (3.5-5.1); SODIUM LEVEL 138 MEQ/L (136-145); TOTAL PROTEIN 7.5 GM/DL (6.4-8.2)
[2020-07-24] MEDS ORDERED: VANCOMYCIN HCL 750 MG, VIAL MATE ADAPTER 1 EACH in D5W 250 ML IV ONE ×2 (21:00→22:00)
[2020-07-24 21:54] LABS: HEPATITIS B SURFACE ANTIGEN NEGATIVE (NEGATIVE)
[2020-07-24 22:23] LABS: HEPATITIS B CORE ANTIBODY IGM NEGATIVE (NEGATIVE)
[2020-07-24 22:24] LABS: HEPATITIS A ANTIBODY IGM NEGATIVE (NEGATIVE)
[2020-07-24 22:40] LABS: HEPATITIS C VIRUS ABY INDEX > 11.0 INDEX (<0.8)
[2020-07-25] MEDS ORDERED: VANCOMYCIN HCL 1,000 MG, VIAL MATE ADAPTER 1 EACH in D5W 250 ML IV SCH (05:00)
[2020-07-26 17:08] LABS: Lyme Disease IgG Ab 18 kDa Ban Absent (.); Lyme Disease IgG Ab 23 kDa Ban Absent (.); Lyme Disease IgG Ab 28 kDa Ban Absent (.); Lyme Disease IgG Ab 30 kDa Ban Absent (.); Lyme Disease IgG Ab 39 kDa Ban Absent (.); Lyme Disease IgG Ab 41 kDa Ban Absent (.); Lyme Disease IgG Ab 45 kDa Ban Absent (.); Lyme Disease IgG Ab 58 kDa Ban Absent (.); Lyme Disease IgG Ab 66 kDa Ban Absent (.); Lyme Disease IgG Ab 93 kDa Ban Absent (.); Lyme Disease IgG West Blot Int Negative (.); Lyme Disease IgG/IgM Antibodie <0.91 ISR (0.00-0.90); Lyme Disease IgM Ab 23 kDa Ban Absent (.); Lyme Disease IgM Ab 39 kDa Ban Present (.); Lyme Disease IgM Ab 41 kDa Ban Absent (.); Lyme Disease IgM Ab Quantitati 1.51 index (0.00-0.79); Lyme Disease IgM West Blot Int Negative (.)
--- NOTE | 2020-07-29 10:41 | HPE ---
DATE OF ADMISSION: 07/24/2020 CHIEF COMPLAINT: Left knee pain and lower extremity redness and swelling. HISTORY OF PRESENT ILLNESS: This 39-year-old experiencing 5 days history of increasing redness, warmth and swelling to her left lower extremity. She is not experiencing any other symptoms. She denies fever, chills, night sweats, nausea, vomiting, dysuria, cough and any other hot swollen joints or aches of her body. She feels well. No coryza. And she was apparently seen in the walk-in clinic Wednesday, four days ago. They gave her Toradol and steroids. There is no recent trauma or prolonged kneeling despite working in the garden a lot recently. PAST MEDICAL HISTORY: Negative. MEDICATIONS: Nil. ALLERGIES: No known drug allergies. SURGICAL HISTORY: None. FAMILY HISTORY: SOCIAL HISTORY: She is unemployed. 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 She smokes half pack of cigarettes a day. 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 She used to do intravenous drug use. She denies current use. PHYSICAL EXAMINATION: VITAL SIGNS: Temperature 98.7 at 11:30, rising to 99.3 at 4:55 pm, then to 98.9. Blood pressure is stable. Pulse rate from 93-98. Respirations 18, oxygen saturation 99% on room air. GENERAL APPEARANCE: A 39-year-old female. She looks older than her stated age. She is in no acute distress, but she appears uncomfortable in regards to her left lower extremity. EXTREMITIES: She has mild prepatellar swelling and a small effusion. Range of motion is quite difficult. This causes her quite a bit of pain in the left knee. There are no draining wounds, no abrasions. Knee is very mildly warm as is the lower extremity from the mid thigh down to the mid calf. Normal sensation and motor function. Her foot is warm and well perfused. Good pedal pulses. She appeared stable, moving her toes and ankle. No pain at the tip or ankle. IMAGING: Radiographs were reviewed from the urgent care center. Three views were obtained, DP and two obliques. This shows no acute abnormalities. There is also a vascular ultrasound taken today, 07/24/2020 at 12:04. The report states no DVT in the left lower extremity. Complex subcutaneous collection anteriorly over the knee. Could represent bursitis or hematoma. Stated further characterization with MRI, particularly if there is no concordant history to validate further pathology. There is a complex subcutaneous collection 7.3 by 1.8 by 3.2 cm anteriorly to the knee. LABORATORY STUDIES: WBC 9.7, neutrophil percentage 67%. ESR 52, CRP 2.53, lactic 1, uric 5.7. Microbiology from knee aspiration, preliminary reveals WBCs, no organisms seen. ASSESSMENT AND PLAN: This is a 39-year-old female with gradual onset left lower extremity knee pain, swelling, redness and warmth, likely has a cellulitis and possibly a septic bursitis of her knee versus possibly infected prepatellar bursitis or simply a soft tissue infection surrounding the knee. I recommended aspiration of the knee to rule out a septic arthritis. I had her sign consent form explaining, the pros and cons and risks and benefits of doing nothing versus going ahead with a left knee aspiration. I performed this. I sent this to the lab for a stat gram stain, culture and sensitivities, cell count, crystals as well as glucose. Initial cultures are negative for gram stain. It is my own interpretation the fluid did not appear to be consistent with a septic bacterial arthritis. And as such, I will start her on intravenous Vancomycin as well as Cefazolin for MRSA coverage for her left lower extremity cellulitis and monitor for final cell count and cultures. I have asked the Hospitalist to consult on her care as well. I will admit her to the hospital and start IV antibiotics and follow the CRP and white blood cell count to ensure good clinical response to the antibiotics. PROCEDURE NOTE: I talked about the pros and cons risks and benefits of the left knee aspiration. I signed consent form to this. I prepped the superolateral aspect of the left knee with alcohol based solution, allowed this totally dry. I instilled 5 mL of 1% Lidocaine in and around the area. I came back 10 minutes later. I used a #18 gauge needle with 30 mL syringe. I aspirated 20 mL of yellow appearing joint fluid with small amount of sanguinous drainage at the end. I split these into to two cultures bottles and sent them for fluid analysis on stat basis. I cleaned the site, applied a bandage as well as wrapping this with 6 inch primitivo bandage. The patient tolerated the procedure reasonably well. IDA
[2020-07-31 11:08] LABS: ANTINUCLEAR ANTIBODIES DIRECT Negative (Negative)
== END 2020-07-24 22:15 | disposition left against medical advice (07) | DRG 351 ==
LOC: EDBD 11:17 → M ED 11:17 → M ED INP 16:32
PROVIDERS: ADMIT Orthopaedic Surgery Sports Medicine; ATTEND Orthopaedic Surgery Sports Medicine
PROC: 0S9D3ZX Drainage of Left Knee Joint, Percutaneous Approach, Diagnostic (ICD-10-PCS; principal; 2020-07-24)
DX: M25.462 Effusion, left knee (principal); F32.9 Major depressive disorder, single episode, unspecified; F17.210 Nicotine dependence, cigarettes, uncomplicated; F10.21 Alcohol dependence, in remission; F41.9 Anxiety disorder, unspecified

== ENCOUNTER 2020-09-29 10:22 | Emergency (ER) | payer OTHER ==
[~2020-09-29] VITALS: Ht 170.2 cm; Wt 84.4 kg
[~2020-09-29 10:22] MED LIST changes: +ACET1TAB55 PO
[2020-09-29 10:23] VITALS: BP 113/75
[2020-09-29] MEDS ORDERED: MIRE1IUD IU (10:29)
== END 2020-09-29 11:20 | disposition left against medical advice (07) ==
LOC: M ED 10:22
DX: Z53.21 Procedure and treatment not carried out due to patient leaving prior to being seen by health care provider (principal)

== ENCOUNTER → 2021-01-24 | Outpatient (CLI) | payer SELFPAY ==
[~2021-01-24] MED LIST changes: +MIRE1IUD IU
== END ==
LOC: M LABSMTC 10:36
PROVIDERS: ATTEND Pediatrics
DX: Z11.52 Encounter for screening for COVID-19 (principal)

== ENCOUNTER → 2021-01-31 | Outpatient (CLI) | payer OTHER ==
[2021-01-31 13:01] LABS: BASO % 0.6 % (0.0-1.0); EOS # 0.1 10^3/uL (0.0-0.5); EOS % 1.4 % (0.0-3.0); HEMATOCRIT 41.5 % (36.0-47.0); HEMOGLOBIN 14.1 g/dl (12.0-15.5); MEAN CORPUSCULAR HEMOGLOBIN 31.1 pg (27.0-33.0); MEAN CORPUSCULAR VOLUME 91.4 fl (80.0-96.0); MONO # 0.6 10^3/uL (0.0-0.8); MONO % 9.2 % (2.0-8.0); NEUTROPHILS # 4.2 10^3/uL (1.5-8.5); NEUTROPHILS % 59.5 % (36.0-66.0); PLATELET COUNT, AUTOMATED 219 10^3/uL (150-450); RED BLOOD COUNT 4.54 10^6/uL (4.00-5.40)
[2021-01-31 13:03] LABS: APPEARANCE, URINE HAZY (CLEAR); BACTERIA, URINE AUTO 1+ (NEGATIVE); BILIRUBIN, URINE AUTO NEGATIVE (NEGATIVE); BLOOD, URINE BLOOD NEGATIVE (NEGATIVE); COLOR, URINE YELLOW (YELLOW); GLUCOSE, URINE (UA) AUTO NEGATIVE (NEGATIVE); KETONE, URINE AUTO NEGATIVE (NEGATIVE); LEUKOCYTE ESTERASE, URINE AUTO 2+ (NEGATIVE); MUCUS, URINE SMALL (NEGATIVE); NITRITE, URINE AUTO NEGATIVE (NEGATIVE); PROTEIN, URINE AUTO NEGATIVE (NEGATIVE); RBC, URINE AUTO 2 /HPF (0-3); SPECIFIC GRAVITY URINE AUTO 1.018 (1.002-1.035); SQUAMOUS EPITHELIAL CELL UR AU 6 /HPF (0-6); UROBILINOGEN, URINE AUTO 0.2 mg/dL (0.0-2.0); WBC, URINE AUTO 5 /HPF (0-3)
[2021-01-31 13:37] LABS: ALBUMIN 4.4 GM/DL (3.2-5.2); ALT/SGPT 86 U/L (12-78); BILIRUBIN,TOTAL 0.6 MG/DL (0.2-1.0); BLOOD UREA NITROGEN 15 MG/DL (7-18); CALCIUM LEVEL 9.3 MG/DL (8.5-10.1); CARBON DIOXIDE LEVEL 33 MEQ/L (21-32); CHLORIDE LEVEL 100 MEQ/L (98-107); CREATININE FOR GFR 0.72 MG/DL (0.55-1.30); GLOMERULAR FILTRATION RATE > 60.0 (>58); GLUCOSE, FASTING 78 MG/DL (70-100); SODIUM LEVEL 138 MEQ/L (136-145); TOTAL PROTEIN 8.7 GM/DL (6.4-8.2)
[2021-01-31 13:38] LABS: HEPATITIS B SURFACE ANTIBODY POSITIVE (POSITIVE)
[2021-01-31 13:48] LABS: HEPATITIS B SURFACE ANTIGEN NEGATIVE (NEGATIVE)
[2021-01-31 14:16] LABS: HEPATITIS B CORE ANTIBODY IGM NEGATIVE (NEGATIVE)
[2021-01-31 14:18] LABS: HEPATITIS A ANTIBODY IGM NEGATIVE (NEGATIVE)
[2021-01-31 14:25] LABS: HEPATITIS C VIRUS ABY INDEX > 11.0 INDEX (<0.8)
== END ==
LOC: M LAB 12:06
PROVIDERS: ATTEND Physician Assistant Medical
DX: B18.2 Chronic viral hepatitis C (principal); B16.9 Acute hepatitis B without delta-agent and without hepatic coma; B15.9 Hepatitis A without hepatic coma

== ENCOUNTER → 2021-02-17 | Outpatient (CLI) | payer OTHER ==
[2021-02-17 18:06] LABS: BASO % 0.7 % (0.0-1.0); EOS # 0.1 10^3/uL (0.0-0.5); EOS % 2.2 % (0.0-3.0); HEMATOCRIT 39.5 % (36.0-47.0); HEMOGLOBIN 13.2 g/dl (12.0-15.5); LYMPH # 1.8 10^3/uL (1.5-5.0); LYMPH % 40.5 % (24.0-44.0); MEAN CORPUSCULAR HEMOGLOBIN 31.1 pg (27.0-33.0); MEAN CORPUSCULAR HGB CONC 33.4 g/dl (32.0-36.5); MEAN CORPUSCULAR VOLUME 92.9 fl (80.0-96.0); MONO # 0.5 10^3/uL (0.0-0.8); MONO % 11.1 % (2.0-8.0); NEUTROPHILS # 2.1 10^3/uL (1.5-8.5); NEUTROPHILS % 45.3 % (36.0-66.0); PLATELET COUNT, AUTOMATED 189 10^3/uL (150-450); RED BLOOD COUNT 4.25 10^6/uL (4.00-5.40); WHITE BLOOD COUNT 4.5 10^3/uL (4.0-10.0)
[2021-02-17 18:37] LABS: C REACTIVE PROTEIN QUANTITATIV < 0.30 MG/DL (0.00-0.30); RHEUMATOID FACTOR QUANT 10.3 IU/ML (<15.0)
[2021-02-17 20:01] LABS: ERYTHROCYTE SEDIMENTATION RATE 24 mm/hr (0-20)
== END ==
LOC: M LAB 17:22
PROVIDERS: ATTEND Orthopaedic Surgery
DX: M25.562 Pain in left knee (principal)

== ENCOUNTER 2021-02-22 09:54 | Emergency (ER) | payer OTHER ==
[~2021-02-22] VITALS: Ht 170.2 cm; Wt 92.3 kg
[2021-02-22] MEDS ORDERED: BUPR300T92 PO (10:00)
[2021-02-22] MEDS ORDERED: SUBO8MIS SL (10:00)
[2021-02-22 10:18] VITALS: BP 129/68
[2021-02-22] MEDS ORDERED: ELIM5CRE2 TOP (10:19)
== END 2021-02-22 10:36 | disposition home or self-care (01) ==
LOC: M ED 09:54
DX: Z20.7 Contact with and (suspected) exposure to pediculosis, acariasis and other infestations (principal)

== ENCOUNTER 2021-03-17 12:39 | Emergency (ER) | payer OTHER ==
[~2021-03-17] VITALS: Ht 170.2 cm; Wt 90.9 kg
[~2021-03-17 12:39] MED LIST changes: +BUPR300T92 PO; +ELIM5CRE2 TOP
[2021-03-17 13:37] LABS: BASO % 0.7 % (0.0-1.0); EOS # 0.1 10^3/uL (0.0-0.5); EOS % 2.5 % (0.0-3.0); HEMATOCRIT 40.5 % (36.0-47.0); LYMPH # 2.3 10^3/uL (1.5-5.0); LYMPH % 40.6 % (24.0-44.0); MEAN CORPUSCULAR HEMOGLOBIN 30.6 pg (27.0-33.0); MEAN CORPUSCULAR HGB CONC 34.6 g/dl (32.0-36.5); MEAN CORPUSCULAR VOLUME 88.6 fl (80.0-96.0); MONO # 0.6 10^3/uL (0.0-0.8); MONO % 10.5 % (2.0-8.0); NEUTROPHILS # 2.6 10^3/uL (1.5-8.5); NEUTROPHILS % 45.5 % (36.0-66.0); PLATELET COUNT, AUTOMATED 182 10^3/uL (150-450); RED BLOOD COUNT 4.57 10^6/uL (4.00-5.40); WHITE BLOOD COUNT 5.7 10^3/uL (4.0-10.0)
[2021-03-17 13:49] LABS: INR 0.99; PROTHROMBIN TIME 13.3 SECONDS (12.5-14.3)
[2021-03-17 13:50] LABS: PARTIAL THROMBOPLASTIN TIME 32.7 SECONDS (24.2-38.5)
[2021-03-17 14:12] LABS: HCG, SERUM QUALITATIVE NEGATIVE (NEGATIVE)
[2021-03-17] MEDS ORDERED: ISOVUE-370 76% 100ML VIAL As Ordered ONE (14:18)
[2021-03-17 14:27] LABS: ALBUMIN 3.8 GM/DL (3.2-5.2); ALT/SGPT 27 U/L (12-78); BILIRUBIN,DIRECT 0.1 MG/DL (0.0-0.2); BILIRUBIN,TOTAL 0.5 MG/DL (0.2-1.0); CK-MB VALUE MASS 2.5 NG/ML (<3.6); CPK CREATINE PHOSPHOKINASE 58 U/L (26-192); FREE T4 0.72 NG/DL (0.76-1.46); LIPASE 48 U/L (73-393); MB/CK RELATIVE INDEX 4.31 (< OR =4); TOTAL PROTEIN 7.7 GM/DL (6.4-8.2); TROPONIN I < 0.02 NG/ML (< 0.10)
--- NOTE | 2021-03-17 14:43 | REP ---
INDICATION: arm pain/numbness. COMPARISON: None. TECHNIQUE: Axial CT images with multiplanar reformations. FINDINGS: There is straightening of the cervical spine in absence of normal cervical lordosis. No evidence of fracture or malalignment. Craniovertebral junction is unremarkable. No evidence of a significant canal stenosis. On the review of axial images, only minimal degenerative disc disease. No evidence of limiting canal or foraminal stenosis within the cervical spine. Osteophyte from the inferior aspect of T1 narrows the right T1-T2 neural foramen, with moderate foraminal narrowing Lung apices are clear. IMPRESSION: No acute findings. No evidence of an limiting osseous canal or foraminal stenosis within the cervical spine. If clinical if symptoms persist, MRI recommended. <Electronically signed by Bong Yee > 03/17/21 [id number]
--- NOTE | 2021-03-17 14:44 | REP ---
INDICATION: chest pain; R/O PE COMPARISON: None. TECHNIQUE: Axial contrast enhanced images from the thoracic inlet to the upper abdomen using pulmonary embolus technique with multiplanar re-formations. 75 ml Isovue 370 intravenous contrast material administered without complication. This CT examination was performed using the following dose reduction techniques: Automated exposure control, adjustment of mA and/or kv according to the patient's size, and use of iterative reconstruction technique. FINDINGS: Satisfactory enhancement of the pulmonary vasculature is achieved and no filling defects are identified to suggest pulmonary embolus. Further evaluation of the mediastinum demonstrates normal thoracic aorta, heart and pericardium. The bilateral lung cisse are well aerated and clear without consolidation pleural effusion or pneumothorax. Tracheobronchial tree is patent. No nodule or mass lesion is identified. No adenopathy noted. Surrounding musculoskeletal structures intact IMPRESSION: No evidence for pulmonary embolus. No acute mediastinal or pleural parenchymal process. <Electronically signed by Hardeep Branham > 03/17/21 [id number]
--- NOTE | 2021-03-17 15:06 | REP ---
INDICATION: CHEST PAIN COMPARISON: None. TECHNIQUE: Portable AP view of the chest FINDINGS: The mediastinum and cardiac silhouette are stable and within normal limits for portable technique. The lung cisse are clear without acute consolidation, effusion, or pneumothorax. Skeletal structures are intact. IMPRESSION: No acute cardiopulmonary process appreciated. <Electronically signed by Hardeep Branham > 03/17/21 [id number]
--- NOTE | 2021-03-17 15:41 | ECGEPIP ---
[facility] - ED Test Date: 2021-03-17 Pat Name: TYREE ACUNAepartment: Room: - Gender: Female [employer]: JACK : 1980 Requested By: Jude Bean Order Number: [id number] Reading MD: Donovan Munoz Measurements Intervals [place] Rate: 74 P: 55 OR: 196 QRS: 14 QRSD: 108 T: 44 QT: 400 QTc: 444 Interpretive Statements Normal sinus rhythm Incomplete right bundle branch block Delayed anterior R wave progression Electronically Signed on 03-17-2021 15:41:13 EDT by Donovan Munoz
[2021-03-17 15:49] VITALS: BP 134/87
== END 2021-03-17 15:55 | disposition home or self-care (01) ==
LOC: M ED 12:39
DX: R07.89 Other chest pain (principal); F11.10 Opioid abuse, uncomplicated; F90.9 Attention-deficit hyperactivity disorder, unspecified type; G47.00 Insomnia, unspecified; Z79.899 Other long term (current) drug therapy; Z97.5 Presence of (intrauterine) contraceptive device; Z87.891 Personal history of nicotine dependence
CPT/HCPCS: 36415; 71045; 71275; 72125; 80047; 80076; 82550; 82553; 83690; 84439; 84443; 84703; 85025; 85610; 85730; 93005; 93041; 94760; 99285; Q9967

== ENCOUNTER → 2021-04-03 | Outpatient (REF) | payer OTHER ==
[2021-04-03 14:07] LABS: ALBUMIN 3.8 GM/DL (3.2-5.2); BILIRUBIN,DIRECT 0.1 MG/DL (0.0-0.2); BILIRUBIN,TOTAL 0.4 MG/DL (0.2-1.0); TOTAL PROTEIN 7.9 GM/DL (6.4-8.2)
[2021-04-04 13:07] LABS: HEPATITIS C QUANTITATION HCV Not Detected IU/mL (.)
== END ==
LOC: M SFHCPLAZ 11:50
PROVIDERS: ATTEND Internal Medicine Infectious Disease
DX: B18.2 Chronic viral hepatitis C (principal)

== ENCOUNTER → 2021-04-07 | Outpatient (CLI) | payer OTHER ==
[2021-04-07 13:19] LABS: HEMATOCRIT 37.6 % (36.0-47.0); HEMOGLOBIN 12.8 g/dl (12.0-15.5); MEAN CORPUSCULAR HEMOGLOBIN 29.8 pg (27.0-33.0); MEAN CORPUSCULAR VOLUME 87.6 fl (80.0-96.0); PLATELET COUNT, AUTOMATED 193 10^3/uL (150-450); RED BLOOD COUNT 4.29 10^6/uL (4.00-5.40); WHITE BLOOD COUNT 5.1 10^3/uL (4.0-10.0)
[2021-04-07 13:54] LABS: HCG, SERUM QUALITATIVE NEGATIVE (NEGATIVE)
[2021-04-07 13:57] LABS: ALBUMIN 3.8 GM/DL (3.2-5.2); ALT/SGPT 30 U/L (12-78); BILIRUBIN,TOTAL 0.6 MG/DL (0.2-1.0); BLOOD UREA NITROGEN 10 MG/DL (7-18); CALCIUM LEVEL 9.3 MG/DL (8.5-10.1); CARBON DIOXIDE LEVEL 32 MEQ/L (21-32); CHLORIDE LEVEL 104 MEQ/L (98-107); CREATININE FOR GFR 0.69 MG/DL (0.55-1.30); GLOMERULAR FILTRATION RATE > 60.0 (>58); GLUCOSE, FASTING 94 MG/DL (70-100); POTASSIUM SERUM 4.4 MEQ/L (3.5-5.1); SODIUM LEVEL 139 MEQ/L (136-145); TOTAL PROTEIN 7.6 GM/DL (6.4-8.2)
[2021-04-07 14:08] LABS: HEPATITIS B SURFACE ANTIGEN NEGATIVE (NEGATIVE)
[2021-04-07 14:36] LABS: HIV 1&2 SCREEN CENTAUR NEGATIVE (NEGATIVE)
[2021-04-07 15:58] LABS: HEPATITIS C VIRUS ABY INDEX > 11.0 INDEX (<0.8)
--- NOTE | 2021-04-07 16:07 | ECGEPIP ---
[facility] Test Date: 2021-04-07 Pat Name: TYREE ACUNAepartment: Room: - Gender: Female [employer] Advisor: [facility] : 1980 Requested By: Donovan Cavazos Order Number: [id number] Reading MD: Donovan Davidson Measurements Intervals [place] Rate: 66 P: 59 NM: 210 QRS: 34 QRSD: 114 T: 50 QT: 402 QTc: 421 Interpretive Statements Sinus rhythm with 1st degree AV block Incomplete right bundle branch block Poor R wave progression. No significant change compared with 03/17/2021. Electronically Signed on 04-07-2021 16:07:31 EDT by Donovan Davidson
== END ==
LOC: M LAB 12:12
PROVIDERS: ATTEND Family Medicine
DX: F11.20 Opioid dependence, uncomplicated (principal)

== ENCOUNTER → 2021-06-03 | Outpatient (CLI) | payer OTHER ==
[2021-06-03 13:52] LABS: ALBUMIN 3.9 GM/DL (3.2-5.2); ALT/SGPT 23 U/L (12-78); BILIRUBIN,DIRECT 0.1 MG/DL (0.0-0.2); BILIRUBIN,TOTAL 0.5 MG/DL (0.2-1.0); TOTAL PROTEIN 8.2 GM/DL (6.4-8.2)
[2021-06-03 14:39] LABS: HIV 1&2 SCREEN CENTAUR NEGATIVE (NEGATIVE)
[2021-06-04 19:08] LABS: HEPATITIS A IgG TOTAL Positive (Negative); HEPATITIS C QUANTITATION HCV Not Detected IU/mL (.)
== END ==
LOC: M PLALAB 11:31
PROVIDERS: ATTEND Internal Medicine Infectious Disease
DX: B18.2 Chronic viral hepatitis C (principal)

== ENCOUNTER → 2021-09-03 | Outpatient (CLI) | payer OTHER ==
[2021-09-03 15:13] LABS: ALBUMIN 3.7 GM/DL (3.2-5.2); ALT/SGPT 24 U/L (12-78); BILIRUBIN,DIRECT < 0.1 MG/DL (0.0-0.2); BILIRUBIN,TOTAL 0.4 MG/DL (0.2-1.0); TOTAL PROTEIN 7.8 GM/DL (6.4-8.2)
[2021-09-04 16:18] LABS: HEPATITIS C QUANTITATION HCV Not Detected IU/mL (.)
== END ==
LOC: M PLALAB 09:27
PROVIDERS: ATTEND Internal Medicine Infectious Disease
DX: B18.2 Chronic viral hepatitis C (principal)

== ENCOUNTER → 2021-09-11 | Outpatient (CLI) | payer OTHER | LOC: M LAB 11:22 | PROVIDERS: ATTEND Family Medicine | DX: F11.11 Opioid abuse, in remission (principal) | CPT/HCPCS: 36415; G0480 ==

== ENCOUNTER → 2021-09-12 | Outpatient (CLI) | payer OTHER | LOC: M LAB 09:14 | PROVIDERS: ATTEND Family Medicine | DX: F11.20 Opioid dependence, uncomplicated (principal) | CPT/HCPCS: 36415; G0480 ==

== ENCOUNTER → 2022-04-03 | Outpatient (CLI) | payer OTHER ==
[2022-04-03 11:36] LABS: HEMATOCRIT 40.8 % (36.0-47.0); MEAN CORPUSCULAR HGB CONC 34.3 g/dl (32.0-36.5); MEAN CORPUSCULAR VOLUME 87.4 fl (80.0-96.0); PLATELET COUNT, AUTOMATED 218 10^3/uL (150-450); RED BLOOD COUNT 4.67 10^6/uL (4.00-5.40); WHITE BLOOD COUNT 6.4 10^3/uL (4.0-10.0)
[2022-04-03 12:03] LABS: ALBUMIN 3.6 GM/DL (3.2-5.2); ALT/SGPT 25 U/L (12-78); BILIRUBIN,TOTAL 0.3 MG/DL (0.2-1.0); BLOOD UREA NITROGEN 9 MG/DL (7-18); CALCIUM LEVEL 8.7 MG/DL (8.5-10.1); CARBON DIOXIDE LEVEL 30 MEQ/L (21-32); CHLORIDE LEVEL 105 MEQ/L (98-107); CREATININE FOR GFR 0.75 MG/DL (0.55-1.30); GLOMERULAR FILTRATION RATE > 60.0 (>58); GLUCOSE, FASTING 112 MG/DL (70-100); POTASSIUM SERUM 4.1 MEQ/L (3.5-5.1); SODIUM LEVEL 138 MEQ/L (136-145); TOTAL PROTEIN 7.5 GM/DL (6.4-8.2)
[2022-04-03 12:27] LABS: HEPATITIS B SURFACE ANTIGEN NEGATIVE (NEGATIVE)
[2022-04-03 12:28] LABS: HCG, SERUM QUALITATIVE NEGATIVE (NEGATIVE)
[2022-04-03 12:56] LABS: HIV 1&2 SCREEN CENTAUR NEGATIVE (NEGATIVE)
[2022-04-03 13:00] LABS: HEPATITIS C VIRUS ABY INDEX > 11.0 INDEX (<0.8)
[2022-04-03 13:00] LABS: GC DNA AMPLIFICATION NEGATIVE (NEGATIVE)
== END ==
LOC: M LAB 10:56
PROVIDERS: ATTEND Family Medicine
DX: F17.200 Nicotine dependence, unspecified, uncomplicated (principal)

== ENCOUNTER 2023-03-05 09:54 | Emergency (ER) | payer OTHER ==
[~2023-03-05] VITALS: Ht 170.2 cm; Wt 97.8 kg
[2023-03-05 09:54] VITALS: BP 126/86
[2023-03-05] MEDS ORDERED: GABA-283 (10:08)
[2023-03-05 11:57] LABS: RSV AMPLIFICATION NEGATIVE (NEGATIVE)
== END 2023-03-05 12:13 | disposition left against medical advice (07) ==
LOC: M ED 09:54
DX: R22.43 Localized swelling, mass and lump, lower limb, bilateral (principal); M79.605 Pain in left leg; M79.604 Pain in right leg; Z53.20 Procedure and treatment not carried out because of patient's decision for unspecified reasons; F17.290 Nicotine dependence, other tobacco product, uncomplicated; F17.200 Nicotine dependence, unspecified, uncomplicated; Z79.899 Other long term (current) drug therapy

== ENCOUNTER 2023-05-05 13:43 | Inpatient (IN) | payer OTHER ==
[~2023-05-05] VITALS: Ht 170.2 cm; Wt 94.6 kg
[~2023-05-05 13:43] MED LIST changes: +GABA-283 PO
[2023-05-05] MEDS ORDERED: AMPH1CAP5 PO (14:08)
[2023-05-05] MEDS ORDERED: ALBU8.5H INH (14:08)
[2023-05-05 15:59] LABS: HEMATOCRIT 42.1 % (36.0-47.0); MEAN CORPUSCULAR HGB CONC 33.3 g/dl (32.0-36.5); MEAN CORPUSCULAR VOLUME 87.2 fl (80.0-96.0); PLATELET COUNT, AUTOMATED 242 10^3/uL (150-450); RED BLOOD COUNT 4.83 10^6/uL (4.00-5.40); WHITE BLOOD COUNT 11.2 10^3/uL (4.0-10.0)
[2023-05-05 16:10] LABS: METHADONE URINE NEGATIVE (NEGATIVE); PHENCYCLIDINE URINE NEGATIVE (NEGATIVE)
[2023-05-05 16:11] LABS: AMPHETAMINES LEVEL URINE NEGATIVE (NEGATIVE); BARBITURATES URINE NEGATIVE (NEGATIVE); BENZODIAZEPINES URINE NEGATIVE (NEGATIVE); CANNABINOIDS URINE NEGATIVE (NEGATIVE); COCAINE METABOLITE URINE NEGATIVE (NEGATIVE); OPIATES URINE NEGATIVE (NEGATIVE)
[2023-05-05 16:13] LABS: ETHYL ALCOHOL (ETHANOL) 0.007 % (0.000-0.010)
[2023-05-05 16:15] LABS: ALBUMIN 3.6 G/DL (3.2-5.2); ALKALINE PHOSPHATASE 87 U/L (46-116); ALT/SGPT 84 U/L (7.0-40); AST/SGOT 61 U/L (<34); BILIRUBIN,DIRECT 0.1 MG/DL (<0.4); BILIRUBIN,TOTAL 0.3 MG/DL (0.3-1.2); BLOOD UREA NITROGEN 11 MG/DL (9-23); CALCIUM LEVEL 8.7 MG/DL (8.5-10.1); CARBON DIOXIDE LEVEL 28 MMOL/L (20-31); CHLORIDE LEVEL 106 MMOL/L (98-107); CREATININE FOR GFR 0.59 MG/DL (0.55-1.30); GLOMERULAR FILTRATION RATE > 60.0 (>58); GLUCOSE, FASTING 96 MG/DL (60-100); POTASSIUM SERUM 4.2 MMOL/L (3.5-5.1); SALICYLATE LEVEL < 3.0 MG/DL (<30); SODIUM LEVEL 140 MMOL/L (136-145); TOTAL PROTEIN 7.8 G/DL (5.7-8.2)
[2023-05-05 16:16] LABS: ACETAMINOPHEN LEVEL < 2.0 UG/ML (10.0-20.0); THYROID STIMULATING HORMONE 0.206 uIU/ML (0.55-4.78)
[2023-05-05] MEDS ORDERED: MED REC IN PROGRESS XX ONE (19:25)
[2023-05-05] MEDS ORDERED: HOME MED LIST COMPLETE! XX SCH (20:20)
[2023-05-05 22:09] VITALS: BP 117/70; TEMP 98.5; O2SAT 14
[2023-05-06] MEDS ORDERED: diphenhydrAMINE 25MG CAP PO PRN (00:25)
[2023-05-06] MEDS ORDERED: ACETAMINOPHEN TAB 650MG DOSE (2X325MG) PO PRN (00:25)
[2023-05-06] MEDS ORDERED: MAALOX 30 ML SUSP *UDC PO PRN (00:25)
[2023-05-06] MEDS ORDERED: MOM 30ML SUSPENSION UDC PO PRN (00:25)
[2023-05-06 06:07] VITALS: BP 120/64; TEMP 99; O2SAT 98
[2023-05-06 08:55] LABS: ALBUMIN 3.1 G/DL (3.2-5.2); BILIRUBIN,DIRECT 0.1 MG/DL (<0.4); BILIRUBIN,TOTAL 0.4 MG/DL (0.3-1.2); FREE T4 0.98 NG/DL (0.89-1.76); THYROID STIMULATING HORMONE 0.153 uIU/ML (0.55-4.78); TOTAL PROTEIN 7.2 G/DL (5.7-8.2)
[2023-05-06] MEDS ORDERED: BACLOFEN 5MG PER 1/2 TABLET PO PRN (10:30)
[2023-05-06] MEDS ORDERED: LOPERAMIDE 2 MG CAPLET PO PRN (10:30)
[2023-05-06] MEDS ORDERED: IBUPROFEN 600MG TAB PO PRN (10:30)
[2023-05-06 10:59] VITALS: BP 140/78
[2023-05-06] MEDS: cloNIDine 0.1MG TABLET PO PRN ×2 (11:00→18:53)
[2023-05-06] MEDS: GABAPENTIN 100 MG CAP PO SCH ×2 (15:48→20:34)
[2023-05-06 18:30] VITALS: BP 137/74; TEMP 97.3; O2SAT 99
[2023-05-06] MEDS: IBUPROFEN 400MG TAB PO PRN (18:52)
[2023-05-06 20:01] VITALS: BP 137/74; TEMP 98.2; O2SAT 100
[2023-05-06] MEDS: traZODone 50 MG TAB PO PRN (20:34)
[2023-05-07 05:57] VITALS: BP 121/67; TEMP 98; O2SAT 100
[2023-05-07] MEDS: cloNIDine 0.1MG TABLET PO PRN ×2 (08:22→16:28)
[2023-05-07] MEDS: GABAPENTIN 100 MG CAP PO SCH ×3 (08:22→20:44)
[2023-05-07] MEDS: IBUPROFEN 400MG TAB PO PRN (11:32)
[2023-05-07] MEDS ORDERED: OLANZapine 5 MG TAB PO PRN (12:25)
[2023-05-07] MEDS ORDERED: hydrOXYzine 50 MG TAB PO PRN (12:25)
[2023-05-07] MEDS: ONDANSETRON 4MG ORAL DISINTEGRATING TAB PO PRN (15:21)
[2023-05-07 16:51] VITALS: BP 122/82; TEMP 98.1; O2SAT 100
[2023-05-07] MEDS: traZODone 50 MG TAB PO PRN (20:44)
[2023-05-08 06:30] VITALS: BP 131/73; TEMP 98.4; O2SAT 100
[2023-05-08] MEDS: GABAPENTIN 300 MG CAP PO SCH ×3 (09:16→20:24)
[2023-05-08 16:12] VITALS: BP 140/78; TEMP 98.2; O2SAT 100
[2023-05-08] MEDS: traZODone 50 MG TAB PO PRN (20:24)
[2023-05-08] MEDS: cloNIDine 0.1MG TABLET PO PRN (20:24)
[2023-05-09 06:40] VITALS: BP 128/72; TEMP 98.4; O2SAT 100
[2023-05-09] MEDS: GABAPENTIN 300 MG CAP PO SCH ×3 (08:27→20:14)
[2023-05-09] MEDS ORDERED: NICOTINE POLACRILEX 2 MG GUM PO PRN (08:35)
[2023-05-09] MEDS: IBUPROFEN 400MG TAB PO PRN (10:27)
[2023-05-09] MEDS: MAGNESIUM SULFATE GRANULES (EPSOM SALT) 1LB EXT SCH ×2 (16:01→20:17)
[2023-05-09 16:10] VITALS: BP 139/74; TEMP 97.7; O2SAT 98
[2023-05-09] MEDS: ONDANSETRON 4MG ORAL DISINTEGRATING TAB PO PRN (17:27)
[2023-05-09] MEDS: traZODone 50 MG TAB PO PRN (20:14)
[2023-05-09 20:16] VITALS: BP 145/84
[2023-05-09] MEDS: cloNIDine 0.1MG TABLET PO PRN (20:16)
[2023-05-10 06:29] VITALS: BP 143/59; TEMP 97.9; O2SAT 100
[2023-05-10] MEDS: GABAPENTIN 300 MG CAP PO SCH (08:19)
[2023-05-10] MEDS: IBUPROFEN 400MG TAB PO PRN (08:21)
[2023-05-10] MEDS ORDERED: GABA-282 PO (08:38)
[2023-05-10] MEDS: MAGNESIUM SULFATE GRANULES (EPSOM SALT) 1LB EXT SCH (09:00)
== END 2023-05-10 09:48 | disposition home or self-care (01) | DRG 754 ==
LOC: M ED 13:43 → M ED INP 13:44 → M PSY 22:09
PROVIDERS: ADMIT Student in an Organized Health Care Education/Training Program; ATTEND Student in an Organized Health Care Education/Training Program
DX: F32.A Depression, unspecified (principal); F14.20 Cocaine dependence, uncomplicated; F15.20 Other stimulant dependence, uncomplicated; F17.210 Nicotine dependence, cigarettes, uncomplicated; F11.24 Opioid dependence with opioid-induced mood disorder; R74.01 Elevation of levels of liver transaminase levels; F11.23 Opioid dependence with withdrawal; Z79.899 Other long term (current) drug therapy

== ENCOUNTER 2025-06-30 01:29 | Emergency (ER) | payer MEDICAID, MEDICARE, OTHER ==
[~2025-06-30] VITALS: Ht 170.2 cm; Wt 101.6 kg
[~2025-06-30 01:29] MED LIST changes: +ALBU8.5H INH; +AMPH1CAP5 PO; +BUPR-766 PO; -BUPR300T92 PO; -ELIM5CRE2 TOP; +GABA-1172 PO; -GABA-283 PO; +GABA-284 PO; +METH18TA15 PO; -METH18TA6 PO; +METH36TA13 PO; -METH36TA5 PO; +PERM60CR8 TOP
[2025-06-30 03:00] VITALS: TEMP 97
[2025-06-30 03:45] VITALS: BP 124/74; O2SAT 80
== END 2025-06-30 03:50 | disposition left against medical advice (07) ==
LOC: M ED 01:29
DX: Z53.21 Procedure and treatment not carried out due to patient leaving prior to being seen by health care provider (principal)